=== PATIENT | female | born 2000 | race Caucasian/White ===

== ENCOUNTER → 2024-08-09 12:04 | Outpatient (REF) | payer OTHER, SELFPAY | LOC: RAD 12:04 | PROVIDERS: ATTENDING PHYSICIAN Nurse Practitioner | DX: M25.562 Pain in left knee (principal) | CPT/HCPCS: 73564 ==

== ENCOUNTER → 2025-02-16 16:10 | Outpatient (REF) | payer OTHER, SELFPAY | LOC: RAD 16:10 | PROVIDERS: ATTENDING PHYSICIAN Nurse Practitioner | DX: E06.3 Autoimmune thyroiditis (principal) | CPT/HCPCS: 76536 ==